=== PATIENT | female | born 1950 | race Hispanic/Latino ===

== ENCOUNTER 2017-12-10 19:00 | Emergency (ER) | payer MEDICARE ==
[~2017-12-10 19:00] MED LIST: CLON.1 PO; Hydralazine Hcl PO; Isosorbide Mononitrate PO; LEVO250T2 PO
[2017-12-10 19:32] LABS: BASOPHILS % (AUTO) 0.7 % (0.0-5.0); EOSINOPHILS % (AUTO) 2.6 % (0.0-8.0); HEMATOCRIT 31.9 % (36-48); LYMPHOCYTES % (AUTO) 15.4 % (21.0-51.0); MEAN CORPUSCULAR HEMOGLOBIN 32.5 pg (27.0-33.0); MEAN CORPUSCULAR HGB CONC 33.3 g/dL (32.0-36.0); MEAN CORPUSCULAR VOLUME 97.5 fL (79-99); MONOCYTES % (AUTO) 11.2 % (3.0-13.0); NEUTROPHILS % (AUTO) 70.1 % (40.0-77.0); PLATELET COUNT (AUTO) 153 K/uL (130-400); RED BLOOD CELL COUNT(AUTO) 3.27 MIL/uL (4.00-5.50); RED CELL DISTRIBUTION WIDTH 17.9 % (11.0-15.5); WHITE BLOOD COUNT (AUTO) 6.5 K/uL (4.8-10.8)
[2017-12-10 19:45] LABS: CARBON DIOXIDE 31 mmol/L (21-32); CHLORIDE 101 mmol/L (101-111); GLOMERULAR FILTR. RATE CALC 7 mL/min (>60); GLUCOSE,RANDOM 101 mg/dL (70-105); SODIUM SERUM 140 mmol/L (136-145); UREA NITROGEN, BLOOD 31 mg/dL (7-18)
[2017-12-10 19:48] LABS: INR 1.04 (0.85-1.15); PARTIAL THROMBOPLASTIN TIME 25.5 SEC (26.3-35.5); PROTHROMBIN TIME 10.9 SEC (9.6-11.6)
[2017-12-10 19:57] LABS: ALANINE AMINOTRANSFERASE 12 U/L (12-78); ALBUMIN 3.4 g/dL (3.5-5.0); ALCOHOL, BLOOD < 3 mg/dL (0-10); ASPARTATE AMINOTRANSFERASE 12 U/L (10-37); BILIRUBIN,TOTAL 0.5 mg/dL (0.2-1.0); CREATINE KINASE MB 0.9 ng/mL (0.5-3.6); CREATINE KINASE, TOTAL 59 U/L (21-232); TOTAL PROTEIN, SERUM 6.7 g/dL (6.0-8.3)
[2017-12-10 20:41] LABS: APPEARANCE,URINE Clear (CLEAR); BILIRUBIN,URINE Negative (NEGATIVE); COLOR,URINE Yellow (YELLOW); GLUCOSE, URINE (UA) TRACE mg/dL (NEGATIVE); KETONES,URINE Negative (NEGATIVE); LEUKOCYTE ESTERASE ,URINE Moderate (NEGATIVE); NITRATE,URINE Negative (NEGATIVE); OCCULT BLOOD,URINE Trace (NEGATIVE); PH,URINE >=9.0 (5.0-8.0); PROTEIN,URINE POS 2+ (NEGATIVE); UROBILINOGEN,URINE 0.2 mg/dL (0.2-1.0)
[2017-12-10 20:47] LABS: AMPHET/METH SCREEN,URINE NEGATIVE (NEGATIVE); BARBITURATE SCREEN, URINE NEGATIVE (NEGATIVE); BENZODIAZEPINES SCREEN,URINE NEGATIVE (NEGATIVE); CANNABINOID SCREEN,URINE NEGATIVE (NEGATIVE); COCAINE SCREEN,URINE NEGATIVE (NEGATIVE); OPIATE SCREEN,URINE NEGATIVE (NEGATIVE); PHENCYCLIDINE SCREEN,URINE NEGATIVE (NEGATIVE)
[2017-12-10 21:00] LABS: BACTERIA,URINE Few /HPF (None Seen); SQUAMOUS EPITHELIAL CELL,UR Few /HPF (0-2)
== END 2017-12-10 21:39 | disposition home or self-care (01) ==
LOC: EDH 19:00
DX: R25.1 Tremor, unspecified (principal); R11.2 Nausea with vomiting, unspecified; K59.00 Constipation, unspecified; I12.0 Hypertensive chronic kidney disease with stage 5 chronic kidney disease or end stage renal disease; E11.22 Type 2 diabetes mellitus with diabetic chronic kidney disease; N18.6 End stage renal disease; Z98.890 Other specified postprocedural states
CPT/HCPCS: 36415; 70450; 71045; 80053; 80305; 81001; 82550; 82553; 84484; 85025; 85610; 85730; 93005; 99285; G0480

== ENCOUNTER 2020-02-24 13:30 | Emergency (ER) | payer MEDICARE ==
[~2020-02-24 13:30] MED LIST changes: -CLON.1 PO; +CLON0.1T2 PO
[2020-02-24] MEDS ORDERED: ONDANSETRON HCL 4 MG/2 ML VIAL ONE (15:02)
[2020-02-24] MEDS ORDERED: MORPHINE SULFATE 4 MG/1ML SYG ONE (15:02)
== END 2020-02-24 17:44 | disposition home or self-care (01) ==
LOC: EDH 13:30
DX: M54.41 Lumbago with sciatica, right side (principal); I12.0 Hypertensive chronic kidney disease with stage 5 chronic kidney disease or end stage renal disease; E11.22 Type 2 diabetes mellitus with diabetic chronic kidney disease; N18.6 End stage renal disease
CPT/HCPCS: 72131; 96374; 96375; 99284; J2270; J2405

== ENCOUNTER 2020-06-10 14:11 | Emergency (ER) | payer MEDICARE ==
[2020-06-10 16:07] LABS: EOSINOPHILS % (AUTO) 1.9 % (0.0-8.0); HEMATOCRIT 42.6 % (36-48); LYMPHOCYTES % (AUTO) 24.9 % (21.0-51.0); MEAN CORPUSCULAR HEMOGLOBIN 28.1 pg (27.0-33.0); MEAN CORPUSCULAR VOLUME 93.6 fL (79-99); MONOCYTES % (AUTO) 11.9 % (3.0-13.0); NEUTROPHILS % (AUTO) 60.2 % (40.0-77.0); PLATELET COUNT (AUTO) 148 K/uL (130-400); RED BLOOD CELL COUNT(AUTO) 4.55 MIL/uL (4.00-5.50); RED CELL DISTRIBUTION WIDTH 16.6 % (11.0-15.5); WHITE BLOOD COUNT (AUTO) 6.8 K/uL (4.8-10.8)
[2020-06-10 16:14] LABS: CREATININE 5.9 mg/dL (0.5-1.5); POTASSIUM 5.1 mmol/L (3.5-5.1)
[2020-06-10] MEDS ORDERED: IOHEXOL-350 50ML VIAL IV ONE (17:50)
== END 2020-06-10 18:44 | disposition home or self-care (01) ==
LOC: EDH 14:11
DX: F95.8 Other tic disorders (principal); I12.0 Hypertensive chronic kidney disease with stage 5 chronic kidney disease or end stage renal disease; E11.22 Type 2 diabetes mellitus with diabetic chronic kidney disease; N18.6 End stage renal disease; Z79.899 Other long term (current) drug therapy; Z99.2 Dependence on renal dialysis
CPT/HCPCS: 36415; 70470; 80048; 85025; 99285; Q9967

== ENCOUNTER 2020-06-12 12:57 | Inpatient (IN) | payer MEDICARE ==
[~2020-06-12] VITALS: Ht 152.4 cm; Wt 77.7 kg
[2020-06-12 14:04] LABS: EOSINOPHILS % (AUTO) 2.1 % (0.0-8.0); HEMATOCRIT 42.6 % (36-48); LYMPHOCYTES % (AUTO) 20.2 % (21.0-51.0); MEAN CORPUSCULAR HEMOGLOBIN 28.4 pg (27.0-33.0); MEAN CORPUSCULAR HGB CONC 30.3 g/dL (32.0-36.0); MEAN CORPUSCULAR VOLUME 93.6 fL (79-99); MONOCYTES % (AUTO) 9.4 % (3.0-13.0); NEUTROPHILS % (AUTO) 67.1 % (40.0-77.0); PLATELET COUNT (AUTO) 161 K/uL (130-400); RED BLOOD CELL COUNT(AUTO) 4.55 MIL/uL (4.00-5.50); RED CELL DISTRIBUTION WIDTH 16.3 % (11.0-15.5); WHITE BLOOD COUNT (AUTO) 6.2 K/uL (4.8-10.8)
[2020-06-12 14:10] LABS: POTASSIUM 5.8 mmol/L (3.5-5.1)
[2020-06-12 14:15] LABS: ALBUMIN 3.9 g/dL (3.5-5.0); BILIRUBIN,TOTAL 0.4 mg/dL (0.2-1.0); TOTAL PROTEIN, SERUM 7.2 g/dL (6.0-8.3)
[2020-06-12 14:19] LABS: CREATININE 9.7 mg/dL (0.5-1.5)
[2020-06-12 14:21] LABS: INR 0.95 (0.85-1.15); PARTIAL THROMBOPLASTIN TIME 24.3 SEC (26.3-35.5); PROTHROMBIN TIME 10.3 SEC (9.6-11.6)
[2020-06-12] MEDS ORDERED: ACETAMINOPHEN 325 MG TAB PO PRN (17:30)
[2020-06-12] MEDS ORDERED: ONDANSETRON HCL 4 MG/2 ML VIAL IVP PRN (17:30)
[2020-06-12] MEDS ORDERED: DEXTROSE 50%-WATER 50 ML DISP.SYRIN IV ONE (18:28)
[2020-06-12] MEDS ORDERED: SODIUM BICARB 50MEQ 50ML VIAL 50 ML ONE (18:29)
[2020-06-12] MEDS ORDERED: INSULIN HUMULIN R 100 UNIT/ML 3ML ONE (18:30)
[2020-06-12] MEDS ORDERED: CALCIUM GLUCONATE 1 GM/10 ML VIAL IV ONE (18:30)
[2020-06-12] MEDS ORDERED: SODIUM CHLORIDE 0.9% 100 ML IV ONE (18:31)
[2020-06-12] MEDS ORDERED: CLONIDINE HCL 0.2 MG TABLET PO ONE (20:04)
[2020-06-12 22:15] VITALS: BP 161/76
[2020-06-13] VITALS (13 sets, daily range): BP systolic 120–188; BP diastolic 60–109
[2020-06-13 06:17] LABS: HEMATOCRIT 36.3 % (36-48); MEAN CORPUSCULAR HEMOGLOBIN 28.4 pg (27.0-33.0); MEAN CORPUSCULAR HGB CONC 30.3 g/dL (32.0-36.0); MEAN CORPUSCULAR VOLUME 93.6 fL (79-99); RED BLOOD CELL COUNT(AUTO) 3.88 MIL/uL (4.00-5.50); RED CELL DISTRIBUTION WIDTH 16.2 % (11.0-15.5)
[2020-06-13 06:34] LABS: POTASSIUM 6.3 mmol/L (3.5-5.1)
[2020-06-13 06:35] LABS: CREATININE 10.7 mg/dL (0.5-1.5)
[2020-06-13] MEDS ORDERED: SODIUM BICARB 50MEQ 50ML VIAL IV SCH (08:15)
[2020-06-13] MEDS ORDERED: SODIUM POLYSTYRENE SULFONATE 15 GM/60 ML ML PO SCH (08:15)
[2020-06-13] MEDS ORDERED: ALBUTEROL SULFATE 0.083% 2.5 MG/3 ML INH IH SCH (08:15)
[2020-06-13] MEDS ORDERED: INSULIN HUMULIN R 100 UNIT/ML 3ML IV SCH (08:15)
[2020-06-13] MEDS ORDERED: DEXTROSE 50%-WATER 50 ML DISP.SYRIN IV SCH (08:15)
[2020-06-13] MEDS ORDERED: LIDOCAINE HCL 1% MDV 50ML VIAL ONE (09:40)
[2020-06-13] MEDS ORDERED: IODIXANOL 320 MG/ML 100 ML VIAL ONE (09:40)
[2020-06-13] MEDS ORDERED: HEPARIN SODIUM 1000UNIT/ML 10ML VIAL ONE (09:40)
[2020-06-13] MEDS ORDERED: HEPARIN SODIUM 5000UNIT/ML 1ML VIAL ONE (20:36)
[2020-06-13] MEDS ORDERED: HEPARIN SODIUM 5000UNIT/ML 1ML VIAL IJ PRN (21:00)
[2020-06-13] MEDS ORDERED: SODIUM CHLORIDE 0.9% 1000ML 1,000 ML IV PRN (21:00)
[2020-06-13] MEDS ORDERED: PHARMACY COMMUNICATION MISC PRN (21:00)
[2020-06-13] MEDS ORDERED: LIDOCAINE HCL-MPF 1% 2ML VIAL IJ PRN (21:00)
[2020-06-13] MEDS ORDERED: 0.9% SODIUM CHLORIDE 1000 ML IV BAG IV PRN (21:00)
[2020-06-13] MEDS ORDERED: NITROGLYCERIN 0.4 MG SL TAB SL PRN (21:00)
[2020-06-14] VITALS: BP 182/85
[2020-06-14 04:00] VITALS: BP 172/82
[2020-06-14 05:37] LABS: POTASSIUM 4.7 mmol/L (3.5-5.1)
[2020-06-14 05:57] LABS: CREATININE 8.4 mg/dL (0.5-1.5)
[2020-06-14 08:24] VITALS: BP 157/88
[2020-06-14 09:14] LABS: HEPATITIS Bs ANTIGEN SCREEN P Negative (Negative)
== END 2020-06-14 11:58 | disposition home or self-care (01) | DRG 314 ==
LOC: EDH 12:57 → EDHIP 16:02 → INTOOBSV 16:02 → OBSVTOIN 16:02 → 4BH 19:48 → 3DH 20:52
PROVIDERS: ADMIT Internal Medicine Infectious Disease; ATTEND Internal Medicine Infectious Disease
PROC: 0JH63XZ Insertion of Tunneled Vascular Access Device into Chest Subcutaneous Tissue and Fascia, Percutaneous Approach (ICD-10-PCS; principal; 2020-06-13)
PROC: 02H633Z Insertion of Infusion Device into Right Atrium, Percutaneous Approach (ICD-10-PCS; 2020-06-13)
PROC: 0XJ73ZZ Inspection of Left Upper Extremity, Percutaneous Approach (ICD-10-PCS; 2020-06-13)
PROC: 5A1D70Z Performance of Urinary Filtration, Intermittent, Less than 6 Hours Per Day (ICD-10-PCS; 2020-06-13)
PROC: 5A1D70Z Performance of Urinary Filtration, Intermittent, Less than 6 Hours Per Day (ICD-10-PCS; 2020-06-14)
DX: T82.868A Thrombosis due to vascular prosthetic devices, implants and grafts, initial encounter (principal); N18.6 End stage renal disease; I12.0 Hypertensive chronic kidney disease with stage 5 chronic kidney disease or end stage renal disease; Q60.0 Renal agenesis, unilateral; E87.1 Hypo-osmolality and hyponatremia; T82.858A Stenosis of other vascular prosthetic devices, implants and grafts, initial encounter; T82.898A Other specified complication of vascular prosthetic devices, implants and grafts, initial encounter; E11.22 Type 2 diabetes mellitus with diabetic chronic kidney disease; Z20.828 Contact with and (suspected) exposure to other viral communicable diseases; E87.5 Hyperkalemia; D63.1 Anemia in chronic kidney disease; E66.9 Obesity, unspecified; Z68.33 Body mass index [BMI] 33.0-33.9, adult; Z99.2 Dependence on renal dialysis; Z82.49 Family history of ischemic heart disease and other diseases of the circulatory system; Y71.2 Prosthetic and other implants, materials and accessory cardiovascular devices associated with adverse incidents; Y83.2 Surgical operation with anastomosis, bypass or graft as the cause of abnormal reaction of the patient, or of later complication, without mention of misadventure at the time of the procedure
CPT/HCPCS: 36415; 36558; 36901; 70470; 77001; 80048; 80053; 82948; 84132; 85025; 85027; 85610; 85730; 86704; 86706; 87340; 87426; 87520; 90935; 93005; 94640; C1750; C1769; C1894; G0378; J0610; J1644; J1815; J3490; J7070; Q9967; U0003

== ENCOUNTER 2022-07-11 09:49 | Emergency (ER) | payer MEDICARE ==
[~2022-07-11] VITALS: Ht 149.9 cm; Wt 86.2 kg
[2022-07-11 10:14] LABS: HEMATOCRIT 36.7 % (36-48); LYMPHOCYTES % (AUTO) 16.5 % (21.0-51.0); MEAN CORPUSCULAR HEMOGLOBIN 29.9 pg (27.0-33.0); MEAN CORPUSCULAR VOLUME 99.7 fL (79-99); MONOCYTES % (AUTO) 16.9 % (3.0-13.0); NEUTROPHILS % (AUTO) 61.5 % (40.0-77.0); PLATELET COUNT (AUTO) 178 K/uL (130-400); RED BLOOD CELL COUNT(AUTO) 3.68 MIL/uL (4.00-5.50); RED CELL DISTRIBUTION WIDTH 15.9 % (11.0-15.5); WHITE BLOOD COUNT (AUTO) 7.1 K/uL (4.8-10.8)
[2022-07-11 10:36] LABS: CREATININE 7.6 mg/dL (0.5-1.5); POTASSIUM 5.2 mmol/L (3.5-5.1)
[2022-07-11 10:40] LABS: ALBUMIN 3.8 g/dL (3.5-5.0); TOTAL PROTEIN, SERUM 7.5 g/dL (6.0-8.3)
[2022-07-11] MEDS ORDERED: IPRATROPIUM/ALBUTEROL SULFATE 3 ML SOLUTION IH ONE ×2 (11:30→13:00)
[2022-07-11 13:57] VITALS: BP 160/73
[2022-07-11] MEDS ORDERED: ALBUHFA IH (14:06)
[2022-07-11] MEDS ORDERED: DOXY-469 PO (14:06)
[2022-07-11] MEDS ORDERED: NA ZIRCON CYCLOSIL(LOKELMA 10GM) PO ONE (14:30)
== END 2022-07-11 14:52 | disposition home or self-care (01) ==
LOC: EDH 09:49
DX: J20.8 Acute bronchitis due to other specified organisms (principal); I12.0 Hypertensive chronic kidney disease with stage 5 chronic kidney disease or end stage renal disease; N18.6 End stage renal disease; E78.00 Pure hypercholesterolemia, unspecified; Z99.2 Dependence on renal dialysis; Z20.822 Contact with and (suspected) exposure to COVID-19
CPT/HCPCS: 99285; 71045; 87635; 80053; 85025; 87804 ×2; 36415; 94640 ×2; C9803

== ENCOUNTER 2022-09-06 17:45 | Emergency (ER) | payer MEDICARE ==
[~2022-09-06 17:45] MED LIST changes: +ALBUHFA IH; -CLON0.1T2 PO; +DOXY-469 PO; -Hydralazine Hcl PO; -Isosorbide Mononitrate PO; -LEVO250T2 PO
[2022-09-06 20:03] VITALS: BP 133/65
[2022-09-06] MEDS ORDERED: BENZ-39 PO (20:06)
[2022-09-06] MEDS ORDERED: AMOX500C2 PO (20:06)
[2022-09-06] MEDS ORDERED: BENZONATATE 100 MG CAPSULE PO SCH (20:30)
== END 2022-09-06 20:13 | disposition home or self-care (01) ==
LOC: EDH 17:45
DX: J20.9 Acute bronchitis, unspecified (principal); I12.0 Hypertensive chronic kidney disease with stage 5 chronic kidney disease or end stage renal disease; N18.6 End stage renal disease; E78.00 Pure hypercholesterolemia, unspecified; Z99.2 Dependence on renal dialysis; Z79.899 Other long term (current) drug therapy
CPT/HCPCS: 71045

== ENCOUNTER 2022-09-10 11:01 | Observation (INO) | payer MEDICARE ==
[~2022-09-10] VITALS: Ht 160 cm; Wt 77.0 kg
[2022-09-10] VITALS (15 sets, daily range): BP systolic 100–160; BP diastolic 40–97
[~2022-09-10 11:01] MED LIST changes: +AMOX500C2 PO; +BENZ-39 PO
[2022-09-10 11:28] LABS: HEMATOCRIT 36.7 % (36-48); MEAN CORPUSCULAR HEMOGLOBIN 30.5 pg (27.0-33.0); MEAN CORPUSCULAR HGB CONC 29.4 g/dL (32.0-36.0); MEAN CORPUSCULAR VOLUME 103.7 fL (79-99); NUCLEATED RED BLOOD CELLS 0.3 % (0.0-0.19); PLATELET COUNT (AUTO) 192 K/uL (130-400); RED BLOOD CELL COUNT(AUTO) 3.54 MIL/uL (4.00-5.50); RED CELL DISTRIBUTION WIDTH 17.5 % (11.0-15.5); WHITE BLOOD COUNT (AUTO) 7.6 K/uL (4.8-10.8)
[2022-09-10 11:39] LABS: CREATININE 7.6 mg/dL (0.5-1.5); POTASSIUM 4.4 mmol/L (3.5-5.1)
[2022-09-10 11:43] LABS: ALBUMIN 3.7 g/dL (3.5-5.0); TOTAL PROTEIN, SERUM 6.4 g/dL (6.0-8.3)
[2022-09-10] MEDS: MIDODRINE HCL 5 MG TABLET PO SCH (14:20)
[2022-09-10] MEDS ORDERED: ACETAMINOPHEN 325 MG TAB PO PRN (15:00)
[2022-09-10] MEDS ORDERED: ONDANSETRON 4MG INJ IVP PRN (15:00)
[2022-09-10] MEDS ORDERED: ALBUMIN (HUMAN) 25% 100 ML IV PRN (16:14)
[2022-09-10] MEDS ORDERED: ALBUMIN (HUMAN) 25% 100 ML IV ONE (16:25)
[2022-09-10] MEDS: INSULIN HUMULIN R 100 UNIT/ML 3ML SQ SCH ×2 (16:30→21:00)
[2022-09-10] MEDS ORDERED: PHARMACY COMMUNICATION MISC SCH (16:30)
[2022-09-10 22:09] LABS: HEPATITIS B SURFACE ANTIGEN Non-Reactive (Nonreactive)
[2022-09-11] VITALS (16 sets, daily range): BP systolic 111–167; BP diastolic 65–82
[2022-09-11] MEDS: INSULIN HUMULIN R 100 UNIT/ML 3ML SQ SCH ×4 (06:36→20:22)
[2022-09-11 07:51] LABS: EOSINOPHILS % (AUTO) 2.8 % (0.0-8.0); HEMATOCRIT 36.2 % (36-48); LYMPHOCYTES % (AUTO) 18.8 % (21.0-51.0); MEAN CORPUSCULAR HEMOGLOBIN 30.9 pg (27.0-33.0); MEAN CORPUSCULAR HGB CONC 29.6 g/dL (32.0-36.0); MEAN CORPUSCULAR VOLUME 104.6 fL (79-99); MONOCYTES % (AUTO) 10.8 % (3.0-13.0); NEUTROPHILS % (AUTO) 66.4 % (40.0-77.0); NUCLEATED RED BLOOD CELLS 0.3 % (0.0-0.19); PLATELET COUNT (AUTO) 178 K/uL (130-400); RED BLOOD CELL COUNT(AUTO) 3.46 MIL/uL (4.00-5.50); RED CELL DISTRIBUTION WIDTH 17.7 % (11.0-15.5)
[2022-09-11 08:13] LABS: CREATININE 5.5 mg/dL (0.5-1.5); MAGNESIUM 2.4 mg/dL (1.80-2.40)
[2022-09-11] MEDS: MIDODRINE HCL 5 MG TABLET PO SCH (14:30)
[2022-09-12] VITALS (19 sets, daily range): BP systolic 111–186; BP diastolic 70–98
[2022-09-12] MEDS: INSULIN HUMULIN R 100 UNIT/ML 3ML SQ SCH ×2 (06:56→11:30)
[2022-09-12] MEDS: MIDODRINE HCL 5 MG TABLET PO SCH (13:09)
== END 2022-09-12 16:10 | disposition home or self-care (01) ==
LOC: EDH 11:01 → EDHIP 14:25 → 3BH 20:45
PROVIDERS: ADMIT Internal Medicine Infectious Disease; ATTEND Internal Medicine Infectious Disease
DX: J81.0 Acute pulmonary edema (principal); I12.0 Hypertensive chronic kidney disease with stage 5 chronic kidney disease or end stage renal disease; E11.22 Type 2 diabetes mellitus with diabetic chronic kidney disease; N18.6 End stage renal disease; D63.1 Anemia in chronic kidney disease; J96.91 Respiratory failure, unspecified with hypoxia; E78.5 Hyperlipidemia, unspecified; E78.00 Pure hypercholesterolemia, unspecified; I24.9 Acute ischemic heart disease, unspecified; E83.39 Other disorders of phosphorus metabolism; E87.70 Fluid overload, unspecified; I44.7 Left bundle-branch block, unspecified; I49.1 Atrial premature depolarization; N25.81 Secondary hyperparathyroidism of renal origin; Z79.899 Other long term (current) drug therapy; Z99.2 Dependence on renal dialysis
CPT/HCPCS: 96365; 99285; 82550 ×3; 83874 ×3; 84484 ×4; 80053; 85027; 82948 ×9; 86706; 87340; 36415 ×2; 71045; 93005; 83735; 80048; 85025; G0378 ×50; P9046; 90935